=== PATIENT | male | born 1960 | race Caucasian/White ===

== ENCOUNTER 2020-10-28 09:21 | Emergency (ER) | payer OTHER, SELFPAY ==
[2020-10-28 09:22] VITALS: BP 144/78; PULSE 63; RESP 18; TEMP 35.9; O2SAT 98; BMI 21.5
--- NOTE | 2020-10-28 09:38 | ED.VIS.GEN ---
History of Present Illness Chief Complaint: Other, Pain/Inj Narrative: Patient presenting for evaluation due to concern for possible hernia. Patient states that he works at a job where he lifts a moderate amount of weight. 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 He reports that he has had progressively increasing pain in his right groin and now is developing bulging in that area specifically with lifting or Valsalva. He denies any testicular pain. Denies any difficulty urinating. Denies any change in bowels. Denies any fevers. Patient does have a history of a cholecystectomy in the past, denies any history of hernia. Review of systems otherwise negative. Past Medical History - Allergies and Home Meds Allergies/Adverse Reactions: Allergies No Known Allergies Allergy (Verified 10/28/20 09:22) Primary Care Physician: Care Physician,No Primary [Primary Care Provider] - Prior records reviewed: Yes Past Medical History: None Surgical History: cholecystectomy Smoking Status: Never smoker Alcohol: None Drugs: None - Family History Maternal Family History: Reports: - - breast cancer. Paternal Family History: Reports: - - copd in father Review of Systems All systems negative except as indicated General: Denies: Chills, Fever, Sweats Eyes: Denies: Visual changes - bilaterally, Diplopia ENT: Denies: Rhinorrhea, Sore throat Cardiovascular: Denies: Chest pain, Palpitations Respiratory: Denies: Dyspnea, Cough, Dyspnea on exertion Gastrointestinal: Reports: - - Right groin pain Genitourinary: Denies: Dysuria, Hematuria, Frequency Musculoskeletal: Denies: Back pain, Extremity Pain Skin: Denies: Rash, Wounds Neurological: Denies: Headache, Weakness, Numbness Physical Exam Vital Signs/Narrative: Vital Signs Temp Pulse Resp BP Pulse Ox 10/28/20 09:22 96.7 F L 63 18 144/78 H 98 Inital Vital Signs reviewed: Yes General: Well nourished, Well developed Head: Normocephalic, Atraumatic Eyes: EOMI ENT: Moist mucous membranes Neck: - - Normal range of motion Cardiovascular: Regular rate Respiratory: No distress : - - exam shows bulging in the patient's right groin over the external ring of the patient's inguinal canal. This is able to be reduced with continuous pressure. Testicles are normal and nontender with normal lie. Extremities: Nontender Skin: Normal color, No rash Neurological: Alert, Oriented x3 Psychological: Normal affect Diagnostic/Tx/Re-eval - Medical Decision Making Patient presented with emergence of a right inguinal hernia. This is easily reducible on my physical exam. I do not feel that the patient requires emergent surgical referral. Patient has seen Dr. Singh in the past and would like to be referred back to him for surgical intervention. Educated patient on signs and symptoms which to return in terms of an incarcerated hernia and interventions he can try at home prior to presenting to the emergency department. Patient will be placed on lifting restrictions until he follows up with general surgery. Patient was discharged in stable condition. ED Disposition - Plan for ED Patient: Disposition: Home or Assisted Living Diagnosis: Right inguinal hernia Instructions: ED Hernia (Adult) Referrals: Moi Singh MD [STAFF PHYSICIAN] - As soon as possible
--- NOTE | 2020-10-28 09:47 | ED.RN ---
[facility] CONTACTED FOR TESTING
[2020-10-28 09:55] VITALS: RESP 16
--- NOTE | 2020-10-28 09:55 | ED.RN ---
REVIEWED D/C INSTRUCTIONS, FOLLOW UP CARE, AND S/S THAT WOULD WARRANT A RETURN TO THE ED WITH PT. PT VERBALIZED AN UNDERSTANDING AND DENIES FURTHER QUESTIONS FOR THIS RN. PT SKIN P/W/D, RESP EVEN AND UNLABORED, PT A&O X 3, NO DISTRESS NOTED. PT CURRENTLY AWAITING [facility] FOR POST ACCIDENT DRUG SCREEN.
== END 2020-10-28 10:24 | disposition home or self-care (01) ==
LOC: ED 09:49
PROVIDERS: Emergency Provider Emergency Medicine
DX: K40.90 Unilateral inguinal hernia, without obstruction or gangrene, not specified as recurrent (principal); Z90.49 Acquired absence of other specified parts of digestive tract
CPT/HCPCS: 99283

== ENCOUNTER 2020-11-29 10:28 | Day surgery (SDC) | payer OTHER, SELFPAY ==
[2020-11-02 10:07] VITALS: BMI 21.5
--- NOTE | 2020-11-28 08:34 | EKG12_ITS ---
Test Reason : PREOP Blood Pressure : / mmHG Vent. Rate : 063 BPM Atrial Rate : 063 BPM P-R Int : 138 ms QRS Dur : 086 ms QT Int : 390 ms P-R-T Axes : 061 064 061 degrees QTc Int : 399 ms Normal sinus rhythm Normal ECG Confirmed by NARENDRA JORDAN, JIMMY ([id number]), acquisitions editor RM ANDREA ([id number]) on 12/02/2020 9:33:25 AM Referred By: Moi Singh Confirmed By:JIMMY MACKEY MD
[2020-11-29] VITALS (10 sets, daily range): BP systolic 114–143; BP diastolic 64–90; PULSE 53–81; RESP 16–18; TEMP 36.1–37.2; O2SAT 10–100; BMI 22.0
[2020-11-29] MEDS: Lactated Ringers 1,000 ML 100 ML IV ×2 (11:00→13:01)
--- NOTE | 2020-11-29 11:21 | HP.PCM_ITS ---
Problem List (1) Bilateral inguinal hernia Status: Acute Qualifiers: Obstruction and gangrene presence: without obstruction or gangrene Recurrence: non-recurrent Qualified Code(s): K40.20 - Bilateral inguinal hernia, without obstruction or gangrene, not specified as recurrent History and Physical Date of Admission: 11/29/20 Intake Vital Signs 11/02/20 Height 5 ft 10 in 11/02/20 Weight: 150 lb 11/02/20 BP 160/95 H 11/02/20 Blood Pressure Location Rt brachial 11/02/20 Position Sitting 11/02/20 Respiration 16 11/02/20 Pulse 67 11/02/20 Pulse Source Monitor 11/02/20 Temp 98.0 F 11/02/20 Temp Source Temporal 11/02/20 Pulse Oximetry (%) 100 11/02/20 Oxygen Delivery Method room air Intake Visit Reasons: RIGHT INGUINAL HERNIA Chief Complaint: Right inguinal hernia [employer] Specialist Required: No Is patient in pain?: No (On and off Right groin pain) Allergies No Known Allergies Allergy (Verified 11/02/20 10:09) Medications Oxymetazoline HCl [No Drip Nasal [place]] 30 ml NS 4X/DAY PRN PRN 04/27/16 [History Confirmed 11/02/20] [facility] Medical History (Updated 11/02/20 @ 11:[address] Moi Singh MD) Right inguinal hernia (Acute) Bilateral inguinal hernia (Acute) Choledocholithiasis with acute cholecystitis with obstruction (Resolved) Acute gallstone pancreatitis (Acute) Cholecystitis (Acute) Surgical History Hx of cholecystectomy (Acute) Family History Brother Asthma Mother Breast cancer Father Hypertension Son Asthma Social History (Updated 11/02/20 @ 11:[address] Moi Singh MD) Smoking Status: Never smoker HPI HPI HPI: ALEIDA POWELL, is a 60 M who presents to the office today for HPI HPI Surgical H&P: Yes HPI: ALEIDA POWELL, is a 60 M who presents to the office today for Inguinal pain. The patient is having pain in both of his groins as well as swelling. The patient reports this happened after lifting at work. He said he went to the emergency room and they only examined his right side but he is having pain on both sides. He says that he was not having pain on either side before his accident work. Patient reports he is not having any nausea or vomiting. ROS General General: No weight change, appetite, fatigue, colon cancer, breast cancer or weakness HEENT HEENT: No difficulty swallowing, eye injury, eye surgery, swollen glands or hoarseness Endo Endocrine: No thyroid disease, diabetes mellitus, thyroid cancer, Hair loss, heat intolerance or cold intolerance Skin Skin: No rash or changing moles Musc Musculoskeletal: Yes back problems and arthritis; no rheumatoid arthritis, gout or joint pain Cardio Cardiovascular: No murmur, pacemaker, heart disease, atrial fibrillation, high blood pressure, heart attack, heart stent, palpitations, shortness of breat with exertion or chest pain Psych Psychiatric: No depression, anxiety or hearing voices Resp Respiratory: No shortness of breath, No sleep apnea, No cough, No COPD, No asthma, No emphysema, No wheezing Gastro Gastrointestinal: Yes abdominal pain, No nausea or vomiting, No diarrhea, No constipation, No blood in stool, Yes acid reflux, No hemorrhoids, No ulcers, No gallbladder problem, No black,tarry stools Eric Hematologic: No blood thinners, No blood disorders, No bleeding, No anemia, No blood clots Neuro Neurologic: No system reviewed and no additional complaints, except as docu, No as per HPI, No abnormal walking, No abnormal hearing, No abnormal movements, No abnormal speech, No behavioral changes, No burning sensations, No confusion, No seizure-like activity, No unsteadiness, No dizziness, No localized weakness, No frequent falls, No headache(s), No lack of coordination, No loss of vision, No memory loss, No numbness, No other visual disturbances, No radiating pain, No restless legs, No sensory deficit, No fainting, No tingling, No tremor(s), No weakness, No other Exam Const General: cooperative Orientation: alert, oriented x3 Resp Effort & Inspection: normal respiratory effort Auscultation: clear to auscultation bilaterally Cardio Rate: regular rate Rhythm: regular rhythm Heart Sounds: no murmurs GI Inspection: non-distended Palpation: soft, hernia indirect inguinal bilaterally, nontender Assessment & Plan Problems 1. Non-recurrent bilateral inguinal hernia without obstruction or gangrene K40.20 Plan The patient has bilateral inguinal hernias. He reports this happened at work and he immediately went to the emergency room after this happened. He says he is having pain in both groins as well as bulging in both groins. I was able to palpate bilateral inguinal hernias and these are reducible. I discussed robotic assisted laparoscopic bilateral inguinal hernia repair with mesh. I discussed the risks of the procedure such as bleeding, infection, injury to spermatic cord, chronic groin pain, hernia recurrence. Patient understands risks and is when to proceed. All questions were answered accordingly. We will schedule the patient once his Worker's Comp. is approved. Moi Singh MD Pager: [facility] [address] [place] [address], [address] [place] [address] Office: I have re-examined the patient. There are no clinical changes since date of exam.
[2020-11-29] MEDS: Cefazolin 2 GM in 0.9% Normal Saline 100 ML IV (12:09)
[2020-11-29] MEDS: Bupivacaine Mpf 0.5% 30 ML VIAL (13:30)
--- NOTE | 2020-11-29 13:45 | OP.PCM_ITS ---
Problem List (1) Bilateral inguinal hernia Status: Acute Qualifiers: Obstruction and gangrene presence: without obstruction or gangrene Recurrence: non-recurrent Qualified Code(s): K40.20 - Bilateral inguinal hernia, without obstruction or gangrene, not specified as recurrent Report of Operation Date of Procedure: 11/29/20 Pre-Operative Diagnosis: Bilateral inguinal hernias Post-Operative Diagnosis: Same Surgery/Procedure Performed:: Robotic assisted laparoscopic bilateral inguinal hernia repair with mesh Specimen's removed: None Description of Procedure: Patient was brought back to the operating room and general anesthesia was used. The abdomen was prepped and draped in usual sterile fashion. A midline incision was made superior to the umbilicus and the fascia was grasped and elevated and a Veress needle was placed into the abdomen. A drop test was performed. The Veress needle was used to insufflate the abdomen to 15 mmHg. The Veress needle was removed and the camera port was placed into the abdomen. The camera placed into the abdomen and it was inspected and there were no injuries from entry. Under direct visualization a left lateral 8 mm port and a right lateral 8 mm port were placed. The patient was placed in Trendelenburg position and the robot was docked. Using electrocautery scissors a peritoneal incision was made in the right lower quadrant and dissection was carried inferiorly until the hernia sac was identified and reduced. The dissection was carried more posteriorly and a progrip mesh was unfolded and placed over the inguinal hernia on the right side. The peritoneum was reapproximated using a running 3-0V lock suture. The mesh was completely covered by peritoneum at the end of this procedure. Next the left side was addressed. In the same fashion electrocautery scissors were used to make an incision in the peritoneum then this was dissected inferiorly. The patient seemed to have a very medial direct inguinal hernia. The preperitoneal space between the bladder and the hernia were dissected free and the contents were reduced. ProGrip mesh was unfolded over the hernia with good coverage. The peritoneum was reapproximated using a running 3-0V lock suture completely covering the mesh. Both inguinal regions were inspected and there was good hemostasis and good coverage of the mesh bilaterally. The robot was undocked and the air was allowed to desufflate from the abdomen. The ports were removed. The incisions were injected with local anesthetic and closed with interrupted 4-0 Monocryl suture as well as Steri- Strips and bandages. The scrotum was checked in the end the case and contained both testicles. Patient was awoken and taken to PACU in stable condition and tolerated the procedure well. Grafts/Implants Used: Progrip mesh bilaterally - Admit VTE Documentation VTE Mechan Device Prophylaxis: SCD's
--- NOTE | 2020-11-29 13:51 | PCM.DC.HER ---
Discharge Diet: Light diet - advance as tolerated Discharge Activity: Return to Normal Activity, May Not Drive - for 2-3 days or while taking narcotic pain meds., May Shower - with the bandage in place 1-2 days after surgery. Lifting Restrictions: 20 pounds for 4 weeks. Additional Activity Instructions:: Climbing stairs is fine, walking is encouraged. Sitting in bed may be uncomfortable. Sitting up using your lateral muscles (sitting up sideways) is usually more comfortable. Do not drive, work heavy equipment of sign legal documents for 24 hours. If your hernia repair was an ingunial repair, you may have scrotal swelling, an ice pack and/or athletic support can provide more comfort. Pain medications may cause nausea, you should typically eat light foods as you take your pain medications. Pain medications may also cause constipation. If you have difficulty with this, discuss with your doctor. Call your doctor if your incision/area has: Continuous Slow Oozing, Sudden Increased Bleeding, Increased Pain/ Swelling, Increased Redness, Foul Smelling Discharge Call your doctor if you observe: Fever of 101 or Higher Suture Line Care: Avoid Pulling/Pushing, Avoid Pinching/Bending Change Dressing in (Days):: 3 - Leave steri-strips for 1 week. May protect with a guaze bandaid. Cleanse incision/area with: Keep Dressing Clean & Dry Allergies/Adverse Reactions: Allergies No Known Allergies Allergy (Verified 11/29/20 10:39) Medications to take at Discharge Oxymetazoline HCl [No Drip Nasal [place]] 30 ml NS 4X/DAY PRN PRN 04/27/16 Oxycodone HCl/Acetaminophen [Percocet 5-325 mg Tablet] 1 - 2 tab PO Q6H PRN PRN 5 Days #20 tablet 11/29/20 The following prescriptions were given: Oxycodone HCl/Acetaminophen [Percocet 5-325 mg Tablet] 1 - 2 tab PO Q6H PRN PRN 5 Days #20 tablet PRN Reason: Pain Score 4-10/10 Transmission Status: Sent to [facility] Primary Care Physician: Care Physician,No Primary [Primary Care Provider] - Test Results: Test results from this visit will be discussed in further detail at your follow-up appointment, if applicable. Please Follow Up With: Moi Singh MD When: Please call to schedule 2 week follow up appointment. [phone]
--- NOTE | 2020-11-29 17:22 | SUR.PHASEII ---
prescription TORB Dr Singh for Flomax 0.4mg daily x 7days phone to [facility] retail pharmacy, [place] pharmacist.
[2020-11-29] MEDS: Tamsulosin HCl 0.4 MG Capsule 0.8 MG PO (17:38)
--- NOTE | 2020-11-30 12:31 | NURSING ---
On 11/29/20 the urinary Catheter was placed by Marquise BAIRD, see intervention.
== END 2020-11-29 20:13 | disposition home or self-care (01) ==
LOC: SDC 10:29 → AC 10:29
PROVIDERS: Referring Provider Surgery; Visit Provider Surgery
PROC: (CPT 49650; principal; 2020-11-29 12:00)
DX: K40.20 Bilateral inguinal hernia, without obstruction or gangrene, not specified as recurrent (principal); Z20.828 Contact with and (suspected) exposure to other viral communicable diseases; Z86.718 Personal history of other venous thrombosis and embolism
CPT/HCPCS: 00840; 49650; S2900; 87426; 93005; C9803; J7120; J2405